=== PATIENT | male | born 1965 | race American Indian/Alaskan Native ===

== ENCOUNTER 2018-09-15 13:29 | Emergency (ER) | payer OTHER ==
[2018-09-15 14:05] VITALS: BP 147/102
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
--- NOTE | 2018-09-15 15:06 | Cat Scan Report ---
PROCEDURE: CT HEAD/BRAIN WO CON TECHNIQUE: CT images of the head were obtained without the use of IV contrast HISTORY: PAIN COMPARISONS: None available FINDINGS: No CT evidence of intracranial mass, hemorrhage, acute territorial infarction, or hydrocephalus. Intr acranial arteries are symmetric in density. Calvarium is intact. There is bilateral ethmoid sinus muc osal thickening. Mastoids are aerated. IMPRESSION: No CT evidence of acute abnormality. This document is electronically signed by Keiry Schmidt MD., September 15 2018 03:04:00 PM ET
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
[2018-09-15] MEDS ORDERED: SUBLIMAZE IV ONE (16:20)
[2018-09-15] MEDS ORDERED: ZOFRAN IV ONE (16:20)
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
[2018-09-15 17:06] LABS: Basophils % (Auto) 0.5 % (0.0-1.8); Eosinophils # (Auto) 0.5 K/mm3 (0.0-0.4); Eosinophils % (Auto) 10.8 % (0.0-4.3); Hemoglobin 15.6 gm/dl (11.8-15.2); Mean Corpuscular HGB Conc 33 % (32-34); Mean Corpuscular Volume 94 fl (84-94); Monocytes # (Auto) 0.5 K/mm3 (0.0-0.8); Monocytes % (Auto) 10.5 % (0.0-7.3); Platelet Count 156 K/mm3 (140-440); Red Blood Count 4.98 M/mm3 (3.65-5.03); Red Cell Distribution Width 13.2 % (13.2-15.2)
[2018-09-15 17:23] LABS: Creatine Kinase MB 1.9 ng/mL (0.0-4.0)
[2018-09-15 17:25] LABS: Alanine Aminotransferase 30 units/L (7-56); Albumin 4.4 g/dL (3.9-5); BUN/Creatinine Ratio 10; Blood Urea Nitrogen 10 mg/dL (9-20); Calcium 9.2 mg/dL (8.4-10.2); Hemolysis Index 15
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
== END 2018-09-15 19:42 | disposition home or self-care (01) ==
LOC: ED 13:29
DX: S09.90XA Unspecified injury of head, initial encounter (principal); S20.219A Contusion of unspecified front wall of thorax, initial encounter; S70.01XA Contusion of right hip, initial encounter; S40.011A Contusion of right shoulder, initial encounter; M25.561 Pain in right knee; F17.200 Nicotine dependence, unspecified, uncomplicated; V49.9XXA Car occupant (driver) (passenger) injured in unspecified traffic accident, initial encounter; Y93.89 Activity, other specified; Y92.410 Unspecified street and highway as the place of occurrence of the external cause; Y99.8 Other external cause status
CPT/HCPCS: 36415; 70450; 71275; 72125; 73030; 73502; 73562; 74177; 80053; 82550; 82553; 84484; 85025; 93005; 93010; 96374; 96375; 99284; J2405; J3010; Q9967

== ENCOUNTER 2021-11-24 11:11 | Emergency (ER) | payer OTHER ==
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
[2021-11-24 16:14] VITALS: BP 128/96
== END 2021-11-24 16:11 | disposition home or self-care (01) ==
LOC: ED 11:11
DX: S39.012A Strain of muscle, fascia and tendon of lower back, initial encounter (principal); S80.01XA Contusion of right knee, initial encounter; V89.2XXA Person injured in unspecified motor-vehicle accident, traffic, initial encounter; Y93.89 Activity, other specified; Y92.89 Other specified places as the place of occurrence of the external cause; Y99.8 Other external cause status
CPT/HCPCS: 99282